=== PATIENT | female | born 1975 | race Caucasian/White ===

== ENCOUNTER 2022-02-03 19:47 | Emergency (ER) | payer OTHER, MEDICAID, SELFPAY ==
[2022-02-03 20:06] VITALS: BP 146/71; PULSE 91; RESP 16; TEMP 36.7; O2SAT 100; BMI 41.3
--- NOTE | 2022-02-03 22:36 | ED_ITS ---
HPI - Wound/Laceration General Chief Complaint: Wound/Laceration Stated Complaint: RIGHT HAND DEEP CUT INDEX LACERATION Time Seen by Provider: 02/03/22 22:27 Source: patient Mode of arrival: Ambulatory History of Present Illness HPI narrative: 46-year-old female here for evaluation of a cut to her left index finger. Patient was camping. She was using a new sharp knife to cut some food when it slipped and cut her finger. She did wash it out prior to arrival. She actually put alcohol over the area prior to arrival. Covered with a bandage. Related Data Allergies Allergy/AdvReac Type Severity Reaction Status Date / Time codeine Allergy Hives Verified 02/03/22 20:14 latex Allergy Hives Verified 02/03/22 20:14 metoclopramide [From Reglan] Allergy Difficulty Verified 02/03/22 20:14 Breathing Sulfa (Sulfonamide Allergy Hives Verified 02/03/22 20:14 Antibiotics) Review of Systems Musculoskeletal Comments: Pain to the tip of the left index finger Integumentary/Breasts Comments: Cut the left index finger Neurologic Comments: No neurologic changes Hematologic/Lymphatic On Anticoagulants: No Patient History Medical History Healthy adult Social History Smoking Status: Never smoker Smoking Status: Never smoker alcohol intake frequency: 0-2 drinks per day Substance Use Type: does not use Exam Initial Vital Signs Initial Vital Signs: Vital Signs Temperature 98.1 F 02/03/22 20:06 Pulse Rate 91 H 02/03/22 20:06 Respiratory Rate 16 02/03/22 20:06 Blood Pressure 146/71 H 02/03/22 20:06 Pulse Oximetry 100 02/03/22 20:06 Cardio Pulses: radial pulses present on the left Skin Other: Patient with a 1 cm laceration to the radial aspect of the distal left index finger. Does not involve the nail. No active bleeding. Neuro Other: No sensory deficits the left index finger Extrem Other: Full range of motion at the DI [employer] IP joint of the left index finger Procedures Laceration Repair Laceration 1: Site: other (Index finger) Side (If applicable): left Size (cm): 1 Description: linear Depth: simple, single layer Skin layer closed with: dermabond Course Vital Signs Vital signs: Vital Signs - 8 hr 02/03/22 20:06 Temperature 98.1 F Pulse Rate 91 H Respiratory Rate 16 Blood Pressure 146/71 H Pulse Oximetry 100 MDM - Wound/Laceration MDM Narrative Medical decision making narrative: Patient has a superficial cut to the left index finger. Is neurovascularly intact. It was closed with Dermabond and Steri-Strips without incident. No indication for antibiotics. Patient was given care instructions return precautions. She expressed understanding and agreement. Discharge Plan Departure Patient Disposition: Home Clinical Impression: Laceration Instructions: DI for Minor Laceration Activity Restrictions/Additional Instructions: You can wash your hands like normal but do not soak your hand in any water. The Steri-Strips and Dermabond should come off within the next week. Return to the emergency department for any new or worsening symptoms.
== END 2022-02-03 22:47 | disposition home or self-care (01) ==
PROVIDERS: Emergency Provider Emergency Medicine
DX: S61.211A Laceration without foreign body of left index finger without damage to nail, initial encounter (principal); W26.0XXA Contact with knife, initial encounter; Y93.G1 Activity, food preparation and clean up
CPT/HCPCS: 12001; 99281; 99282